=== PATIENT | male | born 1990 ===

== ENCOUNTER 2016-08-15 11:23 | Emergency (ER) | payer SELFPAY ==
--- NOTE | 2016-08-15 13:33 | UC ---
FLU HPI - HPI Summary HPI Summary: 4 days of headache and fever. - History of Current Complaint Chief Complaint: UCRespiratory Stated Complaint: HEADACHE SORE THROAT CONGESTION Time Seen by Provider: 08/15/16 13:13 Hx Obtained From: Patient Onset/Duration: Gradual Onset, Lasting Days - 4 Severity Currently: Moderate Severity Initially: Moderate Associated Signs & Symptoms: Positive: Fever, Sore Throat, Nasal Congestion, Headache Related Hx: Possible Flu/Infectious Exposure - Allergy/Home Medications Allergies/Adverse Reactions: Allergies Allergy/AdvReac Type Severity Reaction Status Date / Time No Known Allergies Allergy Verified 08/15/16 13:02 Home Medications: Home Medications Acetaminophen TAB* [Tylenol TAB*] 1,000 mg PO Q6H PRN 08/15/16 [History Confirmed 08/15/16] Benzonatate CAP* [Tessalon CAP*] 100 mg PO TID PRN 08/15/16 [History Confirmed 08/15/16] guaiFENesin ER TAB [Mucinex*] 600 mg PO BID 08/15/16 [History Confirmed 08/15/16 ] PMH/Surg Hx/FS Hx/Imm Hx Previously Healthy: Yes - Surgical History Surgical History: None - Social History Occupation: Student Lives: With Family - lives with roommates, off campus. Alcohol Use: Occasionally Substance Use Type: None Smoking Status (MU): Never Smoked Tobacco Review of Systems Constitutional: Fever, Fatigue, Other - decreased appetite, drinking well. ENT: Sore Throat Respiratory: Cough Gastrointestinal: Vomiting - x 1 several days ago Neurological: Headache All Other Systems Reviewed And Are Negative: Yes Physical Exam Triage Information Reviewed: Yes Appearance: Ill-Appearing - looks mildly unwell Vital Signs: Initial Vital Signs Temp 99.1 F 08/15/16 12:52 Pulse 75 08/15/16 12:52 Resp 20 08/15/16 12:52 BP 157/94 08/15/16 12:52 Pulse Ox 100 08/15/16 12:52 Eyes: Positive: Conjunctiva Clear ENT: Positive: Pharyngeal erythema, Tonsillar swelling - moderately enlarged, no exudate. Dental Exam: Normal Neck: Positive: Supple - can flex easily. Negative Kernig and Brudzinski., Nontender, No Lymphadenopathy Respiratory: Positive: Lungs clear, Normal breath sounds Cardiovascular: Positive: RRR, No Murmur Abdomen Description: Positive: Nontender, No Organomegaly Musculoskeletal Exam: Normal Neurological: Positive: Alert, Muscle Tone Normal Skin Exam: Normal Diagnostics - Laboratory Diagnostic Studies Completed/Ordered: rapid flu negative. Flu Course/Dx - Course Course Of Treatment: continue symptomatic treatment of viral illness. Because of the severity of the headache and lack of sleep, brief course of tylenol with codeine given - Differential Dx/Diagnosis Differential Diagnosis/HQI/PQRI: Influenza, Upper Respiratory Infection Provider Diagnoses: viral syndrome. Discharge - Discharge Plan Condition: Stable Disposition: HOME Prescriptions: Acetaminop/Codeine 30 MG TAB* [Tylenol/Codeine 30 MG TAB*] 1 tab PO Q6H PRN #15 tab MDD 8 PRN Reason: Headache/Discomfort Patient Education Materials: Viral Syndrome (ED) Additional Instructions: As discussed, I would anticipate that you will improve in the next 1 to 2 days. You can use tylenol with codeine for pain control and to improve sleep.
[2016-08-15 14:38] VITALS: BP 157/90
== END 2016-08-15 14:38 | disposition home or self-care (01) ==
LOC: UCCORT 11:23
DX: B34.9 Viral infection, unspecified (principal); R03.0 Elevated blood-pressure reading, without diagnosis of hypertension
CPT/HCPCS: 87502; 99212; G0463